=== PATIENT | female | born 1955 | race African-American/Black ===

== ENCOUNTER 2019-10-28 08:56 | Emergency (ER) | payer OTHER ==
[~2019-10-28] VITALS: Ht 177.8 cm; Wt 158.8 kg
[~2019-10-28 08:56] MED LIST: ACETAMINOPHEN-1 EAC1 ORAL; NEURONTIN100 MG ORAL
--- NOTE | 2019-10-28 09:00 | NUR ---
ED Nurse Note: Patient brought into ED from home by ambulance RA 61, c/o asthma exacerbation since this morning. patient reports she has been coughing since yesterday. bilateral wheezing noted. patient is a/o x3 on a hospital gown, on a radiation monitor. c/o headache 05/25.
[2019-10-28] MEDS ORDERED: Acetaminophen 500mg (ES) tab ORAL ONE (09:15)
[2019-10-28] MEDS ORDERED: Solu-MEDROL 125mg Inj IVP ONE (09:15)
[2019-10-28] MEDS: Ipratropium 0.02% Inh Soln 2.5ml UD HHN SCH ×2 (09:16→09:17)
[2019-10-28] MEDS: Levalbuterol Inh UD 1.25mg/0.5ml HHN SCH ×3 (09:16→10:52)
[2019-10-28 09:41] LABS: HEMOGLOBIN 9.4 G/DL (12.0-16.0); MEAN CORPUSCULAR VOLUME 95 FL (80-99); PLATELET COUNT 245 K/UL (150-450); RED BLOOD COUNT 3.16 M/UL (4.20-5.40); RED CELL DISTRIBUTION WIDTH 14.4 % (11.6-14.8); WHITE BLOOD COUNT 7.6 K/UL (4.8-10.8)
--- NOTE | 2019-10-28 09:46 | Emergency Room Report ---
History of Present Illness General Chief Complaint: Asthma Source: Patient Present Illness HPI 64-year-old female presents ED for evaluation. Brought in by EMS from home for shortness of breath. Wheezing per EMS. History of asthma. Given breathing treatments. Patient states she still feels tight. States that she her symptoms started last night. Was using her inhaler all night without relief. Denies fevers or chills. Notes cough productive with yellowish phlegm. Did not receive flu shot this year. Denies chest pain. No other aggravating relieving factors. Denies any other associated symptoms Allergies: Coded Allergies: IBUPROFEN (Verified Allergy, Mild, HIVES, 07/12/11) Patient History Past Medical History: HTN, asthma Past Surgical History: none Pertinent Family History: none Social History: Denies: smoking, alcohol use, drug use Now: No Immunizations: UTD Reviewed Nursing Documentation: PMH: Agreed; PSxH: Agreed Nursing Documentation-PMH Past Medical History: No History, Except For Hx Hypertension: Yes Hx Asthma: Yes Review of Systems All Other Systems: negative except mentioned in HPI Physical Exam Vital Signs Date Time Temp Pulse Resp B/P (MAP) Pulse Ox O2 Delivery O2 Flow Rate FiO2 10/28/19 08:51 110 24 200/90 (126) 99 Venturi Mask 5.0 Sp02 EP Interpretation: reviewed, normal General Appearance: no apparent distress, alert, GCS 15, non-toxic, obese Head: normocephalic, atraumatic Eyes: bilateral eye normal inspection, bilateral eye PERRL ENT: hearing grossly normal, normal pharynx, no angioedema, normal voice Neck: full range of motion, supple/symm/no masses Respiratory: chest non-tender, decreased breath sounds, speaking full sentences , wheezing Cardiovascular #1: no edema, tachycardia Cardiovascular #2: 2+ carotid (R), 2+ carotid (L), 2+ radial (R), 2+ radial (L) , 2+ dorsalis pedis (R), 2+ dorsalis pedis (L) Gastrointestinal: normal bowel sounds, non tender, soft, non-distended, no guarding, no rebound Rectal: deferred Genitourinary: normal inspection, no CVA tenderness Musculoskeletal: back normal, normal range of motion, gait/station normal, non- tender Neurologic: alert, motor strength/tone normal, oriented x3, sensory intact, responsive, speech normal Psychiatric: judgement/insight normal, memory normal, mood/affect normal, no suicidal/homicidal ideation Reflexes: 3+ bicep (R), 3+ bicep (L), 3+ tricep (R), 3+ tricep (L), 3+ knee (R) , 3+ knee (L) Skin: no rash, other - see nursing skin notes Lymphatic: no adenopathy Medical Decision Making Diagnostic Impression: Primary Impression: Asthma exacerbation Qualified Codes: J45.51 - Severe persistent asthma with (acute) exacerbation Additional Impression: Influenza A ER Course Hospital Course 64-year-old F presenting to ED with respiratory distress, cough and wheezing Differential diagnoses include: Pneumonia, CHF exacerbation, pneumothorax, fluid overload Clinical course 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 After initial history and physical, I ordered nebulizer treatments, solumedrol. I ordered labs, IV fluids , EKG, chest x-ray, blood cultures, UA. Labs - no leukocytosis, hemoglobin/hematocrit stable, electrolytes okay, lactate >3, trop negative influenza A + CXR - cardiomegaly, no focal consolidation identified EKG - sinus tachycardia no acute ischemic changes intepreted by me Patient continued to have wheezing after multiple breathing treatments although somewhat improved. Given magnesium. Given Tamiflu. Given antibiotics. Because of insurance patient will be transferred I feel this is a highly complex case requiring extensive working including EKG/ Rhythm strip, Xray/CT/US, Blood/urine lab work, repeat exams while in ED, and administration of strong opiates/narcotics for pain control, admission to hospital or close patient follow up. Diagnosis - asthma exacerbation, influenza A+ transferred in serious condition Labs Test 10/28/19 09:20 White Blood Count 7.6 K/UL (4.8-10.8) Red Blood Count 3.16 M/UL (4.20-5.40) Hemoglobin 9.4 G/DL (12.0-16.0) Hematocrit 30.0 % (37.0-47.0) Mean Corpuscular Volume 95 FL (80-99) Mean Corpuscular Hemoglobin 29.7 PG (27.0-31.0) Mean Corpuscular Hemoglobin Concent 31.3 G/DL (32.0-36.0) Red Cell Distribution Width 14.4 % (11.6-14.8) Platelet Count 245 K/UL (150-450) Mean Platelet Volume 5.1 FL (6.5-10.1) Neutrophils (%) (Auto) % (45.0-75.0) Lymphocytes (%) (Auto) % (20.0-45.0) Monocytes (%) (Auto) % (1.0-10.0) Eosinophils (%) (Auto) % (0.0-3.0) Basophils (%) (Auto) % (0.0-2.0) Sodium Level 142 MMOL/L (136-145) Potassium Level 3.7 MMOL/L (3.5-5.1) Chloride Level 103 MMOL/L (98-107) Carbon Dioxide Level 30 MMOL/L (21-32) Anion Gap 9 mmol/L (5-15) Blood Urea Nitrogen 9 mg/dL (7-18) Creatinine 0.9 MG/DL (0.55-1.30) Estimat Glomerular Filtration Rate > 60 mL/min (>60) Glucose Level 145 MG/DL (74-106) Lactic Acid Level 3.60 mmol/L (0.4-2.0) Calcium Level 8.7 MG/DL (8.5-10.1) Total Bilirubin 0.6 MG/DL (0.2-1.0) Aspartate Amino Transf (AST/SGOT) 35 U/L (15-37) Alanine Aminotransferase (ALT/SGPT) 43 U/L (12-78) Alkaline Phosphatase 226 U/L (46-116) Troponin I 0.000 ng/mL (0.000-0.056) Pro-B-Type Natriuretic Peptide 728 pg/mL (0-125) Total Protein 8.0 G/DL (6.4-8.2) Albumin 3.8 G/DL (3.4-5.0) Globulin 4.2 g/dL Albumin/Globulin Ratio 0.9 (1.0-2.7) EKG Diagnostic Results Rate: tachycardiac Rhythm: NSR ST Segments: no acute changes ASA given to the pt in ED: No Rhythm Strip Diag. Results EP Interpretation: yes Rhythm: NSR, no PVC's, no ectopy Chest X-Ray Diagnostic Results Chest X-Ray Diagnostic Results : Chest X-Ray Ordered: Yes # of Views/Limited/Complete: 1 View Indication: Shortness of Breath EP Interpretation: Yes Interpretation: no consolidation, no effusion, no pneumothorax, no acute cardiopulmonary disease Impression: No acute disease Electronically Signed by: Electronically signed by Logan Crawford MD Last Vital Signs Date Time Temp Pulse Resp B/P (MAP) Pulse Ox O2 Delivery O2 Flow Rate FiO2 10/28/19 09:18 109 22 100 Room Air 112 19 92 10/28/19 08:51 200/90 (126) 5.0 Status: improved Disposition: XFER SHT-TRM HOSP Condition: Serious Referrals: [facility],REFERRING (PCP) Logan Crawford MD Oct 28, 2019 09:46
[2019-10-28] MEDS ORDERED: ROBAXIN-500MG ORAL (09:57)
[2019-10-28] MEDS ORDERED: TENORMIN50 MG ORAL (09:57)
[2019-10-28] MEDS ORDERED: AMLODIPINE BESY10 MG ORAL (09:57)
[2019-10-28] MEDS ORDERED: HYDROCHLOROTH12.5 M2 ORAL (09:57)
[2019-10-28 09:58] LABS: ANION GAP 9 mmol/L (5-15); BLOOD UREA NITROGEN 9 mg/dL (7-18); CALCIUM 8.7 MG/DL (8.5-10.1); CARBON DIOXIDE 30 MMOL/L (21-32); CHLORIDE 103 MMOL/L (98-107); CREATININE 0.9 MG/DL (0.55-1.30); POTASSIUM 3.7 MMOL/L (3.5-5.1); SODIUM 142 MMOL/L (136-145)
[2019-10-28] MEDS ORDERED: Morphine Sulfate 4mg/ml Inj (IV USE ONLY) IVP ONE (10:00)
[2019-10-28] MEDS ORDERED: Levalbuterol Inh UD 1.25mg/0.5ml HHN ONE (10:00)
[2019-10-28] MEDS ORDERED: Ipratropium 0.02% Inh Soln 2.5ml UD HHN ONE (10:00)
[2019-10-28 10:09] LABS: ALANINE AMINOTRANSFERASE 43 U/L (12-78); ALBUMIN 3.8 G/DL (3.4-5.0); ALBUMIN/GLOBULIN RATIO 0.9 (1.0-2.7); ALKALINE PHOSPHATASE 226 U/L (46-116); ASPARTATE AMINO TRANSFERASE 35 U/L (15-37); BILIRUBIN,TOTAL 0.6 MG/DL (0.2-1.0)
[2019-10-28 10:10] VITALS: BP 187/59
[2019-10-28] MEDS ORDERED: SODIUM CHLORIDE IVLG ONE (10:30)
--- NOTE | 2019-10-28 10:37 | Diagnostic Imaging Report ---
Indication: Shortness of breath Technique: One view of the chest Comparison: 07/12/2011 Findings: Body habitus limits evaluation. The heart is mildly enlarged. The lungs and pleural spaces are grossly clear. Impression: No definite acute process Mild cardiomegaly
[2019-10-28] MEDS ORDERED: Oseltamivir 75mg cap ORAL ONE (10:45)
--- NOTE | 2019-10-28 11:30 | NUR ---
ED Nurse Note: patient refused to get a second IV line.
--- NOTE | 2019-10-28 11:31 | NUR ---
ED Nurse Note: patient reports "no you're not gonna stick me another time."
[2019-10-28 11:51] VITALS: BP 172/82
--- NOTE | 2019-10-28 12:11 | NUR ---
ED Nurse Note: report given to Kirsten kwan [facility]. endorsed all plan of care
--- NOTE | 2019-10-28 12:24 | NUR ---
ED Nurse Note: patient's lactic reflex sent to lab.
[2019-10-28 12:52] LABS: APPEARANCE,URINE SLIGHTLY CLOUDY; BILIRUBIN, URINE NEGATIVE (NEGATIVE); COLOR,URINE PALE YELLOW; GLUCOSE, URINE (UA) NEGATIVE (NEGATIVE); KETONES,URINE NEGATIVE (NEGATIVE); LEUKOCYTE ESTERASE ,URINE 3+ (NEGATIVE); NITRITE,URINE NEGATIVE (NEGATIVE); PH,URINE 6 (4.5-8.0); PROTEIN,URINE NEGATIVE (NEGATIVE); UROBILINOGEN,URINE NORMAL MG/DL (0.0-1.0)
[2019-10-28 13:10] VITALS: BP 169/82
--- NOTE | 2019-10-28 13:45 | NUR ---
ED Nurse Note: patient is being transferred via [facility] with all of her belongings.
[2019-10-28 13:59] VITALS: BP 161/72
--- NOTE | 2019-10-28 14:00 | NUR ---
REPORT GIVEN TO ambulance personal .patient is transferd via [facility]
[2019-10-28] MEDS ORDERED: cloNIDine 0.2mg Tab ONE (14:09)
[2019-10-28 14:10] VITALS: BP 200/90
--- NOTE | 2019-10-28 14:10 | NUR ---
ED Nurse Note: blood pressure medication given as ordered.
[2019-10-28] MEDS ORDERED: cloNIDine 0.2mg Tab ORAL ONE ×2 (14:15)
== END 2019-10-28 14:15 | disposition short-term general hospital (02) ==
LOC: EDBD 08:56 → EMR 09:18
DX: J45.51 Severe persistent asthma with (acute) exacerbation (principal); J09.X2 Influenza due to identified novel influenza A virus with other respiratory manifestations; Z88.6 Allergy status to analgesic agent; I10 Essential (primary) hypertension; E66.9 Obesity, unspecified; I51.7 Cardiomegaly; R00.0 Tachycardia, unspecified; Z68.43 Body mass index [BMI] 50.0-59.9, adult
CPT/HCPCS: 36415; 71045; 80053; 81003; 83605; 83880; 84484; 85007; 85025; 86710; 87040; 93005; 96361; 96365; 96375; J0360; J1956; J2270; J2930; J7644; Z7502; 99285